=== PATIENT | female | born 1945 | race Caucasian/White ===

== ENCOUNTER 2022-03-02 19:20 | Emergency (ER) | payer MEDICARE, OTHER ==
[2022-03-02] MEDS ORDERED: Sodium Chloride 0.9% 10 ML Syringe FLUSH PRN (19:31)
[2022-03-02 20:13] LABS: TROPONIN I HIGH SENSITIVITY 6.9 pg/mL (<=60.3)
[2022-03-02] MEDS ORDERED: amLODIPine 5 MG Tab PO ONE (20:38)
[2022-03-02] MEDS ORDERED: Aspirin 325 MG Tab.EC PO ONE (20:38)
== END 2022-03-02 20:57 | disposition home or self-care (01) ==
LOC: JP.ED 19:20
DX: G45.9 Transient cerebral ischemic attack, unspecified (principal); E78.00 Pure hypercholesterolemia, unspecified; I10 Essential (primary) hypertension; Z79.899 Other long term (current) drug therapy
CPT/HCPCS: 36415; 70450; 80053; 84484; 85025; 85610; 85730; 93005; 93010; 99283; 99284-25; A9270-GY; J3490

== ENCOUNTER → 2022-09-01 | Day surgery (SDC) | payer MEDICARE, OTHER ==
[~2022-09-01] MED LIST: Lactated Ringers 1,000 ML IV SCH; Midazolam 1 MG/ML 2 ML SDV ONE; Propofol 200 MG/20 ML SDV ONE; fentaNYL 100 MCG/2 ML SDV ONE
== END ==
LOC: JP.SDS 06:00
PROVIDERS: ATTEND Student in an Organized Health Care Education/Training Program
DX: K62.1 Rectal polyp (principal); K63.5 Polyp of colon; K57.30 Diverticulosis of large intestine without perforation or abscess without bleeding; K21.9 Gastro-esophageal reflux disease without esophagitis; G47.33 Obstructive sleep apnea (adult) (pediatric); Z79.899 Other long term (current) drug therapy
CPT/HCPCS: 45385; 88305; J2250; J2704; J3010; J7120

== ENCOUNTER 2024-02-25 16:19 | Emergency (ER) | payer MEDICARE, OTHER ==
[2024-02-25] MEDS: Ketorolac 30 MG/ML SDV IM ONE (17:02)
[2024-02-25] MEDS ORDERED: Naloxone 0.4 MG/ML SDV IVPUSH PRN (17:21)
[2024-02-25] MEDS: HYDROmorphone 1 MG/ML Syringe IM ONE (17:28)
[2024-02-25 18:48] LABS: BASOPHILS ABSOLUTE AUTO 0.04 K/uL (0.00-0.10); BASOPHILS PERCENT AUTO 0.4 % (0.1-1.3); EOSINOPHILS ABSOLUTE AUTO 0.09 K/uL (0.00-0.40); EOSINOPHILS PERCENT AUTO 0.8 % (0.0-5.4); HEMATOCRIT 45.1 % (34.3-46.0); HEMOGLOBIN 15.2 g/dL (11.2-15.5); IMMATURE GRAN ABSOLUTE AUTO 0.03 K/uL (0.00-0.23); IMMATURE GRAN PERCENT AUTO 0.3 % (0.0-0.7); MEAN CORPUSCULAR HEMOGLOBIN 31.3 pg (31.6-35.5); MEAN CORPUSCULAR HGB CONC 33.7 g/dL (31.6-35.5); MONOCYTES ABSOLUTE AUTO 0.59 K/uL (0.20-0.90); MONOCYTES PERCENT AUTO 5.2 % (3.3-12.6); NEUTROPHILS PERCENT AUTO 61.3 % (40.0-78.1); PLATELET COUNT,PLT 216 K/uL (130-375); RED BLOOD CELL COUNT 4.85 M/uL (3.77-5.24); WHITE BLOOD CELL COUNT,WBC 11.3 K/uL (3.2-11.0)
[2024-02-25] MEDS: Sodium Chloride 0.9% 1,000 ML IV ONE (18:49)
[2024-02-25 19:12] LABS: ALANINE AMINOTRANSFERASE,ALT 42 U/L (12-78); ALBUMIN 4.1 g/dL (3.4-5.0); ALKALINE PHOSPHATASE 97 U/L (46-116); ANION GAP 10.1 mmol/L (5.0-14.0); ASPARTATE AMNIOTRANSFERASE,AST 38 U/L (15-37); BILIRUBIN TOTAL 0.6 mg/dL (0.2-1.0); BLOOD UREA NITROGEN,BUN 15 mg/dL (7-18); CALCIUM 9.8 mg/dL (8.5-10.1); CARBON DIOXIDE,CO2 28 mmol/L (21-32); CHLORIDE,CL 102 mmol/L (100-108); CREATININE 0.7 mg/dL (0.6-1.0); EST CRCL DRUG DOSING (CG) 54.08 mL/min; ESTIMATED GFR 90 mL/min (>60); GLUCOSE RANDOM 127 mg/dL (74-106); POTASSIUM,K 3.6 mmol/L (3.6-5.2); PROTEIN TOTAL,TP 8.2 g/dL (6.4-8.2); SODIUM,NA 140 mmol/L (140-148)
[2024-02-25] MEDS ORDERED: Propofol 200 MG/20 ML SDV ONE (19:22)
== END 2024-02-25 20:10 | disposition home or self-care (01) ==
LOC: JP.ED 16:19
DX: S43.004A Unspecified dislocation of right shoulder joint, initial encounter (principal); S00.83XA Contusion of other part of head, initial encounter; I10 Essential (primary) hypertension; E78.00 Pure hypercholesterolemia, unspecified; Z79.82 Long term (current) use of aspirin; Z79.899 Other long term (current) drug therapy; Z86.16 Personal history of COVID-19; Z90.49 Acquired absence of other specified parts of digestive tract; Z87.891 Personal history of nicotine dependence; W19.XXXA Unspecified fall, initial encounter
CPT/HCPCS: 23650; 36415; 73030; 80053; 85025; 96360; 96372; 99152; 99283; 99284; J1170; J1885; J2704; J7030

== ENCOUNTER 2024-02-26 16:46 | Emergency (ER) | payer MEDICARE, OTHER ==
[2024-02-26] MEDS ORDERED: Naloxone 0.4 MG/ML SDV IVPUSH PRN (18:06)
[2024-02-26] MEDS: HYDROmorphone 1 MG/ML Syringe IVPUSH ONE (18:15)
[2024-02-26] MEDS ORDERED: Propofol 200 MG/20 ML SDV ONE (19:36)
[2024-02-26] MEDS: Ketorolac 30 MG/ML SDV IVPUSH ONE (20:21)
== END 2024-02-26 21:00 | disposition home or self-care (01) ==
LOC: JP.ED 16:46
DX: S43.015D Anterior dislocation of left humerus, subsequent encounter (principal); X58.XXXD Exposure to other specified factors, subsequent encounter; I10 Essential (primary) hypertension; Z79.82 Long term (current) use of aspirin; Z79.899 Other long term (current) drug therapy; E78.00 Pure hypercholesterolemia, unspecified; Z86.16 Personal history of COVID-19; Z90.49 Acquired absence of other specified parts of digestive tract
CPT/HCPCS: 23650; 73030; 96374; 96375; 99283; J1170; J1885; J2704